=== PATIENT | male | born 1975 | race Caucasian/White ===

== ENCOUNTER → 2018-01-23 | Outpatient (CLI) | payer MEDICAID, SELFPAY | LOC: M OUTALCOH 09:46 | DX: Z13.9 Encounter for screening, unspecified (principal); Z03.89 Encounter for observation for other suspected diseases and conditions ruled out ==

== ENCOUNTER 2018-11-04 10:39 | Emergency (ER) | payer MEDICAID, SELFPAY ==
[~2018-11-04] VITALS: Ht 185.4 cm; Wt 90.1 kg
[2018-11-04 10:40] VITALS: BP 136/83
--- NOTE | 2018-11-04 11:15 | REP ---
Right knee series: Five views. History: Injury in a fall. Findings: Five views of the right knee demonstrate normal bones, joints, and soft tissues. No fracture or subluxation is seen. Impression: Negative right knee radiographs. Electronically Signed by Long Meyers MD 11/04/2018 11:06 A
[2018-11-04] MEDS ORDERED: NAPR-837 PO (11:25)
== END 2018-11-04 11:33 | disposition home or self-care (01) ==
LOC: M ED 10:39
DX: S83.8X1A Sprain of other specified parts of right knee, initial encounter (principal); X50.9XXA Other and unspecified overexertion or strenuous movements or postures, initial encounter; Y92.410 Unspecified street and highway as the place of occurrence of the external cause

== ENCOUNTER 2019-02-03 15:24 | Emergency (ER) | payer MEDICAID, OTHER, SELFPAY ==
[~2019-02-03] VITALS: Ht 185.4 cm; Wt 86.4 kg
[~2019-02-03 15:24] MED LIST: NAPR-837 PO
--- NOTE | 2019-02-03 16:50 | REP ---
Clinical: Trauma. Technique: Frontal view of the chest with four views of the right hemithorax. Findings: Frontal view of the chest demonstrates no acute cardiopulmonary process. Multiple views of the right hemithorax suggest subtle nondisplaced lateral eighth and ninth rib fractures. Impression: Subtle nondisplaced lateral right eighth and ninth rib fractures. Electronically Signed by Crow Whitman MD 02/03/2019 04:41 P
[2019-02-03] MEDS ORDERED: IBUPROFEN 600 MG TAB PO ONE (17:15)
[2019-02-03] MEDS ORDERED: ACETAMINOPHEN 325 MG TAB PO ONE (17:15)
[2019-02-03] MEDS ORDERED: NORC1TAB7 PO (18:02)
[2019-02-03] MEDS ORDERED: IBUP-1022 PO (18:03)
[2019-02-03 18:19] VITALS: BP 160/80
== END 2019-02-03 18:10 | disposition home or self-care (01) ==
LOC: M ED 15:24
DX: S22.41XA Multiple fractures of ribs, right side, initial encounter for closed fracture (principal); S40.011A Contusion of right shoulder, initial encounter; V86.55XA Driver of 3- or 4- wheeled all-terrain vehicle (ATV) injured in nontraffic accident, initial encounter; Y92.89 Other specified places as the place of occurrence of the external cause; F17.200 Nicotine dependence, unspecified, uncomplicated; Z88.0 Allergy status to penicillin